=== PATIENT | male | born 1965 | race Caucasian/White ===

== ENCOUNTER 2018-05-12 11:03 | Inpatient (IN) | payer BC, OTHER ==
[~2018-05-12] VITALS: Ht 188 cm; Wt 117.9 kg
[~2018-05-12 11:03] MED LIST: BRIMONIDINE TAR1 BOT OP; IBUPROFEN 200200 M1 PO; LOTEMAX3.5 GM OP; TIMOLOL MA0.25 %/5 M OP
[2018-05-12] MEDS ORDERED: LOTEMAX5 ML OPHTHALMIC (12:00)
[2018-05-12] MEDS ORDERED: COSOPT OCUMETER10 M1 OPHTHALMIC (12:04)
[2018-05-12] MEDS ORDERED: LISINOPRIL10 MG PO (12:05)
[2018-05-12] MEDS ORDERED: CELEBREX 200 M200 M1 PO (12:06)
[2018-05-12] MEDS ORDERED: CENTRUM SILVER1 EAC2 PO (12:07)
[2018-05-12] MEDS ORDERED: FISH OIL 1,001000 M2 PO (12:07)
[2018-05-12 12:46] LABS: HEMATOCRIT 38.4 % (42.0-52.0); HEMOGLOBIN 13.1 gm/dL (14.0-18.0); MCH 28.5 pg (26.0-34.0); MCHC 34.2 g/dL (28.0-37.0); MCV 83.4 fL (80.0-100.0); RBC 4.6 mil/uL (4.50-6.00); WBC 13.4 thou/uL (4.0-11.0)
[2018-05-12 13:02] LABS: ALBUMIN 3.1 g/dL (3.4-5.0); CALCIUM 8.6 mg/dL (8.5-10.1); POTASSIUM 4.4 mmol/L (3.5-5.1); TOTAL BILIRUBIN 0.8 mg/dL (<0.1-1.0); TOTAL PROTEIN 6.9 g/dL (6.4-8.2); URIC ACID* 4.9 mg/dL (2.6-7.2)
[2018-05-12 17:19] VITALS: BP 124/72
[2018-05-12 19:50] VITALS: BP 126/64
[2018-05-13 03:15] VITALS: BP 137/73
[2018-05-13 07:05] VITALS: BP 127/70
[2018-05-13] MEDS ORDERED: PREDNISONE 10 M10 MG PO (08:06)
[2018-05-13 10:16] VITALS: BP 127/70
== END 2018-05-13 14:13 | disposition home or self-care (01) | DRG 554 ==
LOC: 4E 11:03 → ENTRNSPT 05-13 13:35 → EDTRNSPTSTS 05-13 13:39 → 4E 05-13 14:13
PROVIDERS: Family Medicine
DX: M02.9 Reactive arthropathy, unspecified (principal); Z96.642 Presence of left artificial hip joint; H40.9 Unspecified glaucoma; R26.2 Difficulty in walking, not elsewhere classified; Z88.8 Allergy status to other drugs, medicaments and biological substances; Z88.0 Allergy status to penicillin; Z79.899 Other long term (current) drug therapy
CPT/HCPCS: 10783